=== PATIENT | female | born 1980 | race African-American/Black ===

== ENCOUNTER 2016-09-14 01:19 | Emergency (ER) | payer SELFPAY | END 2016-09-14 02:00 | disposition home or self-care (01) | LOC: CED 01:19 | DX: T75.4XXA Electrocution, initial encounter (principal); Z88.8 Allergy status to other drugs, medicaments and biological substances; W86.8XXA Exposure to other electric current, initial encounter; Y92.009 Unspecified place in unspecified non-institutional (private) residence as the place of occurrence of the external cause | CPT/HCPCS: 99283 ==